=== PATIENT | male | born 1975 | race Caucasian/White ===

== ENCOUNTER 2021-04-15 00:23 | Emergency (ER) | payer SELFPAY ==
[2021-04-15] MEDS ORDERED: ROCURONIUM 10 MG/ML 5 ML SYRINGE IV ONE (00:28)
[2021-04-15] MEDS ORDERED: MIDAZOLAM 5 MG/5 ML (VERSED) VIAL IJ ONE (00:28)
[2021-04-15] MEDS ORDERED: fentaNYL INJ 100 MCG/2 ML AMP IV ONE (00:28)
[2021-04-15] MEDS ORDERED: proPOfol 200 MG/20 ML (DIPRIVAN) VIAL IV ONE ×2 (00:28→01:00)
[2021-04-15] MEDS ORDERED: PROPOFOL DRIP (ICU) 100 ML IV ONE (00:38)
[2021-04-15] MEDS ORDERED: PROPOFOL DRIP (ICU) 100 ML IV SCH (00:45)
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
[2021-04-15] MEDS ORDERED: fentaNYL INJ 100 MCG/2 ML AMP IVP PRN (01:00)
[2021-04-15 01:03] LABS: BILIRUBIN,URINE NEGATIVE (NEGATIVE); CLARITY,URINE CLEAR; COLOR,URINE YELLOW; GLUCOSE, URINE (UA) NEGATIVE (NEGATIVE); KETONES,URINE TRACE (NEGATIVE); LEUKOCYTE ESTERASE ,URINE NEGATIVE (NEGATIVE); NITRITE,URINE NEGATIVE (NEGATIVE); PH,URINE 5.5 (5-9); PROTEIN,URINE NEGATIVE (NEGATIVE)
[2021-04-15 01:15] LABS: HEMATOCRIT 41 % (40-54); HEMOGLOBIN 13.9 g/dL (13.3-17.7); MEAN CORPUSCULAR HEMOGLOBIN 32 pg (25-34); WHITE BLOOD COUNT 12.4 10^3/uL (4.3-11.0)
[2021-04-15 01:16] LABS: BASOPHILS # (AUTO) 0.1 10^3/uL (0.0-0.1); BASOPHILS % (AUTO) 1 % (0-10); EOSINOPHILS # (AUTO) 0.2 10^3/uL (0.0-0.3); EOSINOPHILS % (AUTO) 2 % (0-10); LYMPHOCYTES # (AUTO) 4.9 X 10^3 (1.0-4.0); LYMPHOCYTES % (AUTO) 40 % (12-44); MEAN CORPUSCULAR HGB CONC 34 g/dL (32-36); MEAN PLATELET VOLUME 10.8 fL (9.0-12.2); MONOCYTES # (AUTO) 0.8 X 10^3 (0.0-1.0); MONOCYTES % (AUTO) 7 % (0-12); NEUTROPHILS # (AUTO) 6.4 X 10^3 (1.8-7.8); NEUTROPHILS % (AUTO) 51 % (42-75); PLATELET COUNT 307 10^3/uL (130-400)
[2021-04-15 01:17] LABS: MEAN CORPUSCULAR VOLUME 95 fL (80-99)
[2021-04-15 01:18] LABS: BASOPHILS % (MANUAL) 1 %; LYMPHOCYTES % (MANUAL) 40 %; MONOCYTES % (MANUAL) 3 %; NEUTROPHILS % (MANUAL) 56 %; PLATELET ESTIMATE NORMAL; RBC MORPH NORMAL
[2021-04-15 01:20] LABS: POTASSIUM 4.2 MMOL/L (3.6-5.0)
[2021-04-15 01:21] LABS: ALBUMIN 3.8 GM/DL (3.2-4.5); BILIRUBIN,TOTAL 0.2 MG/DL (0.1-1.0); CALCIUM 7.5 MG/DL (8.5-10.1); CREATININE SERUM 0.77 MG/DL (0.60-1.30); TOTAL PROTEIN 5.9 GM/DL (6.4-8.2)
[2021-04-15 01:23] LABS: BACTERIA,URINE NEGATIVE /HPF; SQUAMOUS EPITHELIAL CELL,UR RARE /HPF; WBC,URINE RARE /HPF
[2021-04-15 01:53] VITALS: BP 128/91
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
== END 2021-04-15 01:53 | disposition short-term general hospital (02) ==
LOC: ER FS 00:27
DX: T26.40XA Burn of unspecified eye and adnexa, part unspecified, initial encounter (principal); T21.32XA Burn of third degree of abdominal wall, initial encounter; T21.31XA Burn of third degree of chest wall, initial encounter; T23.302A Burn of third degree of left hand, unspecified site, initial encounter; T23.301A Burn of third degree of right hand, unspecified site, initial encounter; T31.44 Burns involving 40-49% of body surface with 40-49% third degree burns; Z72.0 Tobacco use; X03.0XXA Exposure to flames in controlled fire, not in building or structure, initial encounter
CPT/HCPCS: 31500; 36415; 51702; 71045; 80053; 81000; 85007; 85027; 99291

== ENCOUNTER 2023-04-04 18:30 | Emergency (ER) | payer OTHER ==
[~2023-04-04] VITALS: Ht 182.9 cm; Wt 85.6 kg
[2023-04-04 18:34] VITALS: BP 114/73
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
--- NOTE | 2023-04-04 19:01 | Diagnostic Imaging Report ---
INDICATION: Right hand pain and swelling post injury. AP, oblique, and lateral views of the right hand are obtained. FINDINGS: There is an ill-defined lucency in the fourth metacarpal neck, suspicious for a nondisplaced fracture. There is no other acute bony abnormality seen. There is a calcification adjacent to the base of the fifth metacarpal, which appears chronic. There is no dislocation. A staple is seen in the soft tissues adjacent to the first carpometacarpal joint. IMPRESSION: Acute nondisplaced fracture of the distal aspect of the fourth metacarpal involving the metacarpal neck. Likely chronic calcification adjacent to the base of fifth metacarpal. A staple is seen in the soft tissues near the first carpometacarpal joint. Dictated by: Dictated on workstation # [id number]
== END 2023-04-04 19:40 | disposition home or self-care (01) ==
LOC: EDUNIT# 18:30 → ER FS 18:34
DX: S62.364A Nondisplaced fracture of neck of fourth metacarpal bone, right hand, initial encounter for closed fracture (principal); W22.01XA Walked into wall, initial encounter
CPT/HCPCS: 29125; 73130

== ENCOUNTER → 2023-05-02 | Outpatient (CLI) | payer OTHER ==
--- NOTE | 2023-05-02 11:31 | Diagnostic Imaging Report ---
HAND 3 VIEW RIGHT INDICATION: Fracture follow-up COMPARISON: 04/04/2023 TECHNIQUE: 3 views of the right hand FINDINGS: The simple oblique fracture at the head neck junction of the ring finger metacarpal maintains anatomic alignment. A small amount of healing callus has developed along the radial aspect of the fracture. No new fracture is seen. Stable skin padmaja along the radial base of the thumb. IMPRESSION: Healing nondisplaced ring finger metacarpal fracture. Dictated by: Dictated on workstation # [id number]
== END ==
LOC: RAD FS 10:38
PROVIDERS: ATTEND Orthopaedic Surgery
DX: S62.364D Nondisplaced fracture of neck of fourth metacarpal bone, right hand, subsequent encounter for fracture with routine healing (principal); X58.XXXD Exposure to other specified factors, subsequent encounter
CPT/HCPCS: 73130